=== PATIENT | female | born 1950 | race Caucasian/White ===

== ENCOUNTER 2017-10-23 05:24 | Observation (INO) | payer OTHER, BC ==
[2017-10-23] MEDS ORDERED: ceFAZolin 2 GM/DEXTROSE 100 ML IV ONE (06:19)
[2017-10-23] MEDS ORDERED: ACETAMINOPHEN 500 MG TAB PO ONE (06:19)
[2017-10-23] MEDS ORDERED: GABAPENTIN 300 MG CAP PO ONE (06:19)
[2017-10-23] MEDS ORDERED: morphINE SR 15 MG TAB PO ONE (06:19)
[2017-10-23] MEDS ORDERED: LR 1,000 ML IV ONE (06:20)
[2017-10-23] MEDS ORDERED: LIDOCAINE 1% 2 ML INJ ID PRN (06:20)
[2017-10-23] MEDS ORDERED: THROMBIN (BOVINE) 5,000 UNIT VIAL TP ONE ×2 (06:41→09:17)
[2017-10-23] MEDS ORDERED: BUPIVACAINE 0.25% 30 ML SDV ONE (06:41)
[2017-10-23] MEDS ORDERED: EPINEPHrine 1 MG/ML INJ ONE (06:41)
[2017-10-23] MEDS ORDERED: BACITRACIN 50,000 UNITS/10 ML SYR IRR ONE ×2 (06:42→06:56)
[2017-10-23] MEDS ORDERED: SURGIFLO MATRIX KIT WITH THROMBIN 8 ML TP ONE ×2 (06:43→09:16)
[2017-10-23] MEDS ORDERED: CHLORHEXIDINE GLUC HIBICLENS 118 ML BTL TP ONE (06:43)
--- NOTE | 2017-10-23 07:02 | PDANEPAE ---
ANE History of Present Illness ACDF ANE Past Medical History - Cardiovascular History Hx Hypertension: Yes Hx Arrhythmias: No Hx Chest Pain: No Hx Coronary Artery / Peripheral Vascular Disease: No Hx CHF / Valvular Disease: No Hx Palpitations: No Cardiovascular History Comment: Pt. reports usual SBP on meds is 120 - Pulmonary History Hx COPD: No Hx Asthma/Reactive Airway Disease: No Hx Recent Upper Respiratory Infection: No Hx Oxygen in Use at Home: No Hx Sleep Apnea: No Sleep Apnea Screening Result - Last Documented: Negative - Neurologic History Hx Cerebrovascular Accident: No Hx Seizures: Yes Hx Dementia: No Neurologic History Comment: ONE 2007 DURING MARATHON. 2009 HIGH EXERTION ON MEDICATION FOR 2 YRS - Endocrine History Hx Diabetes: No Hypothyroid: No Hyperthyroid: No Obesity: no - Renal History Hx Renal Disorders: No - Liver History Hx Hepatic Disorders: No - Neurological & Psychiatric Hx Hx Neurological and Psychiatric Disorders: Yes Neurological / Psychiatric History Comment: DEPRESSION AND ANXIETY - Cancer History Hx Cancer: Yes Cancer History Comment: LT ARM MELANOMA - Congenital Disorder History Hx Congenital Disorders: No - GI History GERD: no Hx Gastrointestinal Disorders: No - Other Health History Other Health History: STENOSIS. NECK/SHLDR/ARM/HAND/FINGERS N/T. LOSS OF STRENGTH LT ARM - Chronic Pain History Chronic Pain: Yes (LT ARM N/T) - Surgical History Prior Surgeries: LUMBAR FUSION X 2 MOST RECENT 2012. LT BIG TOE REMVL BONE. REMVL MELANOMA UPPER LT ARM ANE Review of Systems Review of Systems: - Exercise capacity METS (RN): 6 METS ANE Patient History - Allergies Allergies/Adverse Reactions: erythromycin base Allergy (Verified 10/18/17 11:20) GI ISSUES metaxalone [From Skelaxin] Allergy (Verified 10/18/17 11:21) SEIZURE - Home Medications Home Medications: Exforge 10-320 mg Tablet HS 10/18/17 [Last Taken 2 Days Ago ~10/21/17] Herbals/Supplements -Info Only DAILY 10/18/17 [Last Taken 1 Week Ago ~10/16/17] Naproxen DAILY 10/18/17 [Last Taken 1 Week Ago ~10/16/17] PARoxetine CR HS 10/18/17 [Last Taken 1 Day Ago ~10/22/17] Xanax 0.25 MG (*) PRN 10/18/17 [Last Taken 10/23/17 04:30] - NPO status NPO Since - Liquids (Date): 10/22/17 NPO Since - Liquids (Time): 19:00 NPO Since - Solids (Date): 10/22/17 NPO Since - Solids (Time): 17:30 - Anes Hx Anes Hx: no prior problems - Smoking Hx Smoking Status: Never smoked Marijuana use: No - Alcohol Use Alcohol Use: Other (2-3 drinks/week) - Family Anes Hx Family Anes Hx: none ANE Labs/Vital Signs - Vital Signs Blood Pressure: 161/81 Heart Rate: 79 Respiratory Rate: 18 O2 Sat (%): 97 Height: 165.1 cm Weight: 57.153 kg ANE Physical Exam - Airway Neck exam: FROM (increased pain with L lateral rotation) Mouth exam: normal dental/mouth exam (upper front cap), small mouth opening - Pulmonary Pulmonary: clear to auscultation - Cardiovascular Cardiovascular: regular rate and rhythym - ASA Status ASA Status: II ANE Anesthesia Plan Anesthesia Plan: general endotracheal anesthesia
[2017-10-23] MEDS ORDERED: MIDAZOLAM 2 MG/2 ML VIAL IVP ONE (07:04)
[2017-10-23] MEDS ORDERED: fentaNYL 250 MCG/5 ML INJ ONE (07:10)
[2017-10-23] MEDS ORDERED: PROPOFOL/EMULSION 500 MG/50 ML BOTTLE IV ONE (07:10)
[2017-10-23] MEDS ORDERED: ROCURONIUM 50 MG/5 ML VIAL ONE ×2 (07:11)
[2017-10-23] MEDS ORDERED: KETAMINE 500 MG/10 ML VIAL ONE (07:11)
[2017-10-23] MEDS ORDERED: DEXAMETHASONE 4 MG/ML VIAL ONE (07:12)
--- NOTE | 2017-10-23 07:21 | PDHPUP ---
History & Physical Update H&P update statement: This history and physical update is based on an assessment of the patient which was completed after admission or registration (within 24 hours), but prior to the surgery/procedure. H&P update: H&P reviewed & patient examined, no change in patient's condition since H&P completed
[2017-10-23] MEDS ORDERED: ePHEDrine SULFATE 25 MG/5 ML SYR ONE (08:07)
[2017-10-23] MEDS ORDERED: PHENYLEPHRINE HCL 100 MCG/ML SYR ONE (08:25)
[2017-10-23] MEDS ORDERED: PROPOFOL 200 MG/20 ML VIAL ONE (09:12)
[2017-10-23] MEDS ORDERED: ONDANSETRON 4 MG/2 ML VIAL ONE (09:57)
[2017-10-23] MEDS ORDERED: HYDROmorphONE/DILAUDID 2 MG/ML INJ ONE (10:07)
[2017-10-23] MEDS ORDERED: NALOXONE HCL 0.4 MG/ML INJ IVP PRN (10:13)
[2017-10-23] MEDS ORDERED: fentaNYL 100 MCG/2 ML INJ IVP PRN (10:13)
[2017-10-23] MEDS ORDERED: HYDROmorphONE/DILAUDID 1 MG/ML INJ IVP PRN ×2 (10:13→10:27)
[2017-10-23] MEDS ORDERED: ONDANSETRON 4 MG/2 ML VIAL IVP PRN ×2 (10:13→10:27)
[2017-10-23] MEDS ORDERED: MAGNESIUM HYDROXIDE 30 ML UDCUP PO PRN (10:27)
[2017-10-23] MEDS ORDERED: LACTULOSE 20 GM/30 ML UDCUP PO PRN (10:27)
[2017-10-23] MEDS ORDERED: ONDANSETRON DISINTEGRATING 4 MG TAB PO PRN (10:27)
[2017-10-23] MEDS ORDERED: BISACODYL 10 MG SUPP PR PRN (10:27)
[2017-10-23] MEDS ORDERED: POLYETHYLENE GLYCOL 3350 17 GM PKT PO PRN (10:27)
[2017-10-23] MEDS ORDERED: diphenhydrAMINE 25 MG CAP PO PRN (10:27)
[2017-10-23] MEDS ORDERED: NS 1,000 ML IV SCH (10:30)
--- NOTE | 2017-10-23 10:35 | POSTOPPROG ---
Post Op Note Date of Operation: 10/23/17 Surgeon: Kaylen Reynoso Clinical Asst: MIRIAN Bhagat PAC Anesthesia: GET(General Endotracheal) Pre-op Diagnosis: cervical stenosis Post-op Diagnosis: cervical stenosis Indication: cervical stenosis Procedure: ACDF C5-7 Inf/Abcess present in the surg proc area at time of surgery?: No EBL: Minimal Drains: Fuad VALLEJO Addendum - Addendum .: S: neck pain O: NAD A&Ox3 MAEx4 Neck flat, no edema. Dressing c/d/i. A/P 67y/o female s/p ACDF C5-7 -Post op xrays pending -PT/OT -JPx1 -Advance diet as tolerated -Optimize pain management -Please notify NS with any change in neuro/motor exam
--- NOTE | 2017-10-23 11:05 | GOP ---
[f rep st] OPERATIVE REPORT DATE OF OPERATION: 10/23/2017 SURGEON: Kaylen Reynoso DO NEUROSURGEON: Kaylen Reynoso DO. YARN EXAMINER SKEINS: RO Kowalski. PREOPERATIVE DIAGNOSIS: 1. Cervical spondylosis. 2. Radiculopathy, cervical stenosis. POSTOPERATIVE DIAGNOSIS: 1. Cervical spondylosis. 2. Radiculopathy, cervical stenosis. PROCEDURE PERFORMED: C5-6, C6-7 anterior cervical diskectomy, C5-6, C6-7 interbody graft with LDR RO I-C 12 x 14 x 7 mm graft at C5-6, 12 x 14 x 8 mm graft at C6-7, autograft, allograft, microscope. FINDINGS: SPECIMENS: None. ESTIMATED BLOOD LOSS: 50 mL. INDICATIONS: This is a 67-year-old female with cervical spondylosis, stenosis, radiculopathy who has failed conservative management, elected to move forward with ACDF. DESCRIPTION OF PROCEDURE: She was identified, consented. Sites were marked. Brought to the operati ng room, anesthetized under general endotrach tube anesthesia. Interscapular roll was placed. Head was placed in Wilks head [place]orses[place] in a neutral position. Shoulders were taped down. A blunt nee dle was taped to the skin. An x-ray was used to jp the skin incision. She was prepped and draped in the usual sterile fashion. Incision was anesthetized with 0.25% Marcaine with epinephrine. Incis ion was made with a 10 blade. Hemostasis was obtained with bipolar cautery, dissected through the enriqueta tysma in a horizontal fashion with Metzenbaum scissors, and then moving along the medial border of th e SCM using the Clowards to protect the tissues, dissected in an avascular plane onto the anterior as pect of the vertebral spine. Cleared the prevertebral fascia with Kittners and placed an 18-gauge ba yoneted spinal needle under x-ray, verified we were at the C6-7 level. Marked this, dissected upward s, clearing the prevertebral fascia, and measured and placed a Shadow-Line retractor. Placed 12 mm C aspar pins. Took an x-ray, verified they were in appropriate position. Placed them under distractio n, checked a motor, and there were no changes. Then, using the high-speed drill, removed the disk and cartilaginous endplates superiorly and inferio rly at C5-6 and opened the posterior longitudinal ligament with a micro upgoing curette extending thi s with a 1 Kerrison and the use of the 2 through disk and osteophyte in the superior and i nferior endplates and out bilateral lateral foramina. Two were well decompressed. We then harvested autograft from the superior and inferior endplates and measured a 12 x 14 x 7 mm LDR SAUL-C graft. T his was packed with DBM David, and the patient's own bone. Tamped into place under x-ray with this in the appropriate position. We removed the superior Whitney pin, plugged the hole with a Gelfoam bu llet, used the long wing, tamped it superiorly with a 1 impactor, took an x-ray, verified it was in t he appropriate position. Cold welded with the 1, cold welded with the 2 impactor. We then placed th e short wing inferiorly and tamped it into place. Took an x-ray. It was in good position. Cold wel ded with the 1 impactor, cold welded with the 2 impactor. We then had meticulous hemostasis along the longus colli with bipolar cautery. We then moved down an d moved the ShadowLine retractor down and under microscope, placed the Whitney pin in the C7 vertebral body, took an x-ray, verified it was in the appropriate position. Placed the patient under distract ion. Checked motors and there were no changes to the motors. Using a high-speed drill, removed the disk and cartilaginous endplate from the superior and inferior endplates, coming down the posterior l ongitudinal ligament. This was opened with a micro upgoing curette. We then had a rather large soft , left lateral foraminal disk herniation which was removed with a micropituitary. Then using the 2 _ to remove the disk and osteophytes from the superior and inferior endplates and out bilater al lateral foramina until foraminal fat was identified. Once we were well decompressed, we harvested autograft and then measured a 12 x 14 x 8 mm graft LDR SAUL-C graft for this level. Packed it with G rafton and the patient's own bone and tamped it into place. Under x-ray it was in good position. Removed the Whitney pin superiorly and packed the hole with a Gelfoam bullet, tamped the short wing castro periorly with a 1 impactor. Verified it was in the appropriate position. Cold welded with the 1 imp actor, cold welded with the 2 impactor, removed the Whitney pin inferiorly. Packed the hole with a Ge lfoam bullet. Placed the inferior position wing, which was a long wing into place, tamped into place with a 1. Took an x-ray, verified it was in the appropriate position. Cold welded with the 1, cold welded with the 2. Took a final x-ray. All hardware was in good position. Copiously irrigated wit h over a liter of gentamicin-infused saline, filled the hole looking for any bubbles or air leaks. T here were none. During the entire time we were under distraction, the manometer on the cuff was decr eased to 10-12 mmHg. Once we had meticulous hemostasis, we trocared a drain out inferiorly, placed i n the prevertebral space, removed the Shadow Line retractor, inspecting the armenta on the way out, rem francisco the microscope, closed the platysma with 2-0 Vicryl pop offs, subcutaneous layer with 3-0 Vicryl pop-offs. The skin was closed with a 4-0 running Monocryl and Steri-Strips. The drain was sutured with 1-0 and 2-0 Vicryl pop-off. Placed to bulb suction. Patient tolerated procedure well. There w ere no complications. FLUIDS: 800 mL crystalloid. URINE OUTPUT: None. DRAINS: One YOHAN in the prevertebral space to bulb suction. COMPLICATIONS: None. /[id number]/MODL
--- NOTE | 2017-10-23 13:35 | POSTANESTH ---
Post Anesthetic Evaluation Cardiovascular Status: Similar to Pre-Op Cond Respiratory Status: Normal, Stable Level of Consciousness/Mental Status: Can Participate in Eval Pain Control: Adequate, Prn Tx Ordered Nausea/Vomiting Control: Adequate, Prn Tx Ordered Complications Possibly Related to Anesthesia: None Noted
[2017-10-23] MEDS: ACETAMINOPHEN 500 MG TAB PO SCH ×2 (14:48→21:38)
[2017-10-23] MEDS: ceFAZolin 2 GM/DEXTROSE 100 ML IV SCH ×2 (14:50→21:38)
[2017-10-23] MEDS: METHOCARBAMOL 750 MG TAB PO PRN (15:38)
[2017-10-23] MEDS: HYDROmorphONE/DILAUDID 2 MG TAB PO PRN ×2 (20:46→21:37)
[2017-10-23] MEDS: SENNOSIDES/DOCUSATE SODIUM TAB PO SCH (20:52)
[2017-10-23] MEDS: FAMOTIDINE 20 MG TAB PO SCH (22:03)
[2017-10-24] MEDS: METHOCARBAMOL 750 MG TAB PO PRN ×2 (03:01→12:52)
[2017-10-24] MEDS: ACETAMINOPHEN 500 MG TAB PO SCH ×2 (06:06→14:54)
--- NOTE | 2017-10-24 07:39 | NEUSURGPN ---
Assessment/Plan: A/P 67y/o female s/p ACDF C5-7 POD#1 -Post op xrays pending -PT/OT -JPx1 - DC today -Advance diet as tolerated -Optimize pain management -Dispo to home today D/w Dr Reynoso -Please notify NS with any change in neuro/motor exam Subjective: Pt resting in bed, c/o incisional site pain Objective: AAOx3 NAD VSS MAEx4 Motor 5/5 BUE C collar on Incision dressed cdi YOHAN Urinary Catheter in Place: No - Physician Discussed Patient with : [facility] Physical Exam - Vitals, I&O, Labs I and O 10/23/17 10/24/17 10/25/17 05:59 05:59 05:59 Intake Total 2240 Output Total 3075 Balance -835 Weight 57.153 kg Intake: Oral (ml) 1315 IV Intake (ml) 925 Output: Urine (ml) 3000 Toilet 3000 Estimated Blood Loss (ml) 50 YOHAN Drain Output (ml) 25 Neck Fuad Scott 25 Other: Intake Quantity Yes Sufficient Number of Voids Toilet 1 Vital Signs Temp Pulse Resp BP Pulse Ox 36.9 C 81 13 150/83 H 95 10/24/17 07:34 10/24/17 07:34 10/24/17 07:34 10/24/17 07:34 10/24/17 07:34 Laboratory Results 10/24/17 04:34 ICD10 Worksheet Patient Problems: Problems Problem Status Onset Cervical spine degeneration Acute - ICD10 Problem Qualifiers (1) Cervical spine degeneration
[2017-10-24] MEDS: HYDROmorphONE/DILAUDID 2 MG TAB PO PRN (07:47)
[2017-10-24] MEDS: FAMOTIDINE 20 MG TAB PO SCH (07:48)
[2017-10-24] MEDS: SENNOSIDES/DOCUSATE SODIUM TAB PO SCH (07:48)
--- NOTE | 2017-10-24 08:50 | ASMTCMCOM ---
CM Note CM Note Notes: Chart reviewed. 67 year old female admitted for elective cervical spine surgery. Cleared to dc home per PT. No current needs identified, CM available should needs arise. Plan: To discharge to home independently. Date Signed: 10/24/2017 08:49 AM Electronically Signed By:Roseanne Landa RN
[2017-10-24] MEDS ORDERED: ALPRAZolam 0.25 MG TAB PO PRN (09:36)
[2017-10-24] MEDS ORDERED: CHOLECALCIFEROL VIT D3 1,000 UNITS TAB PO SCH (09:45)
[2017-10-24] MEDS ORDERED: CALCIUM CARBONATE 500 MG TAB PO SCH (09:45)
[2017-10-24 11:32] VITALS: BP 142/76
[2017-10-24] MEDS ORDERED: VALSARTAN 160 MG TAB PO SCH (21:00)
[2017-10-24] MEDS ORDERED: amLODIPine BESYLATE 5 MG TAB PO SCH (21:00)
[2017-10-24] MEDS ORDERED: AMLODIPINE PO SCH (21:00)
[2017-10-24] MEDS ORDERED: PARoxetine HCL 10 MG TAB PO SCH (21:00)
[2017-10-24] MEDS ORDERED: VALSARTAN PO SCH (21:00)
[2017-10-26] MEDS ORDERED: ENOXAPARIN 40 MG/0.4 ML SYR SC SCH (09:00)
--- NOTE | 2017-11-05 13:40 | GDS ---
[f rep st] DISCHARGE SUMMARY ADMITTING DIAGNOSIS: Cervical stenosis. DISCHARGE DIAGNOSIS: Status post C5 to C7 anterior cervical diskectomy and fusion. DISPOSITION: Home. HOSPITAL COURSE: The patient is a 67-year-old female patient who was seen in Dr. Reynoso's clinic as an outpatient. She was found to have significant degeneration in her cervical spine with cervical s pondylosis, stenosis and radiculopathy. She tried and failed conservative management and after caref ul consideration, elected to proceed with surgical intervention in the way of a C5 to C7 anterior cer vical diskectomy and fusion. The procedure was performed by Dr. Kaylen Reynoso for which there were no known complications. Please see her operative report for further details. After the operation, the patient was in stable condition and was transferred from the operating room to the PACU and from the PACU to the postsurgical floor. While on the floor, the patient received physical therapy, occupati onal therapy, speech therapy, and pain management. All drains and catheters were removed. She under went a set of postoperative x-rays which demonstrated stable well-placed hardware. She was subsequen tly discharged to home. DISCHARGE INSTRUCTIONS: Diet: As tolerated. Activity: No bending, lifting, or twisting. The harpreet ent to wear cervical collar. She will keep her incisions clean and dry. MEDICATIONS: Please see the medication reconciliation. FOLLOWUP: The patient has been asked to follow up with Dr. Reynoso in the office in approximately 2- 3 weeks. We have asked the patient to call the office sooner with any questions or concerns at [phone]. /[id number]/MODL
== END 2017-10-24 15:15 | disposition home or self-care (01) ==
LOC: FSGY 05:24 → EDBD 07:15 → F3E 10:27 → F3N 12:30
PROVIDERS: ADMIT Physician Assistant; ATTEND Neurological Surgery
PROC: 0RG1070 Fusion of Cervical Vertebral Joint with Autologous Tissue Substitute, Anterior Approach, Anterior Column, Open Approach (ICD-10-PCS; principal; 2017-10-23 07:15)
PROC: 0RG10K0 Fusion of Cervical Vertebral Joint with Nonautologous Tissue Substitute, Anterior Approach, Anterior Column, Open Approach (ICD-10-PCS; principal; 2017-10-23 07:15)
PROC: 0RB30ZZ Excision of Cervical Vertebral Disc, Open Approach (ICD-10-PCS; principal; 2017-10-23 07:15)
DX: M47.22 Other spondylosis with radiculopathy, cervical region (principal)
CPT/HCPCS: 22551; 22552; 72040; 76001; 92610; 97161; 97165; C1713; G8978; G8979; G8980; G8984; G8985; G8986; G8996; G8997; J0171; J0690; J1100; J1170; J2250; J2370; J2405; J2704; J3010